=== PATIENT | female | born 1950 | race African-American/Black ===

== ENCOUNTER 2016-08-06 03:09 | Observation (INO) | payer MEDICARE ==
[~2016-08-06] VITALS: Ht 170.2 cm; Wt 90.0 kg
[~2016-08-06 03:09] MED LIST: ANAS1 PO; ASPI81 PO; DICL25 PO; OMEG600C2 PO; PROT40TA PO; TAB-TAB PO
[2016-08-06 03:10] VITALS: BP 166/80; PULSE 76; RESP 18; TEMP 97.5; O2SAT 97
[2016-08-06] MEDS ORDERED: GABA300C5 PO (03:15)
[2016-08-06] MEDS ORDERED: BIOT1000 PO (03:15)
[2016-08-06] MEDS ORDERED: FISH120014 PO (03:15)
[2016-08-06] MEDS ORDERED: ANAS1 PO (03:15)
[2016-08-06] MEDS ORDERED: MULT-12 PO (03:15)
[2016-08-06] MEDS ORDERED: ASPI1TAB69 PO (03:15)
[2016-08-06] MEDS ORDERED: PROT40TA PO (03:15)
[2016-08-06] MEDS ORDERED: DICL1CAP4 PO (03:15)
[2016-08-06] MEDS ORDERED: REST0.05 EACH EYE (03:15)
[2016-08-06] MEDS ORDERED: ASPIRIN 81 MG CHEW TAB PO ONE (04:00)
[2016-08-06] MEDS ORDERED: SODIUM CHLORIDE 0.9% FLUSH 5 ML FLUSH IVF PRN ×2 (04:00→06:45)
--- NOTE | 2016-08-06 04:00 | PD ---
HPI Chief Complaint: Chest Pain Time Seen by Provider: 03:38 Travel History International Travel<30 days: No Contact w/Intl Traveler<30days: No Traveled to known affect area: No History of Present Illness HPI This is a 66 year old female who presents to the emergency department with shortness of breath and chest pain since 8 AM, described as someone sitting on her chest, worse with deep breaths, constant, worsening. Pt. reports she is having some pain in her left arm as well. Pt. reports she has been feeling dizzy, tired, and fatigued more than normal. (-) nausea. Pt. does have a history of breast cancer currently on hormonal therapy. PFSH Past Medical History Arthritis: Yes Autoimmune Disease: No Blood Disorders: No Cancer: Yes (LEFT BREAST '07) Cardiovascular Problems: No Cerebrovascular Accident: Yes (TIA) Diabetes: Yes (DIET CONTOLLED) Patient Takes Glucophage: No Diminished Hearing: No Endocrine: No Gastrointestinal Disorders: Yes (GERD) GERD: Yes Genitourinary: No Hepatitis: No Hiatal Hernia: No Immune Disorder: No Musculoskeletal: Yes (RIGHT SHOULDER PAIN, ARTHRITIS) Neurologic: Yes (TIA, LEFT FACIAL NEUROPATHY) Psychiatric: No Reproductive: No Respiratory: No Thyroid Disease: No Menopausal: Yes Past Surgical History Abdominal Surgery: Yes (CHOLECYSTECTOMY) AICD: No Cholecystectomy: Yes Gynecologic Surgery: Yes (RICH) Hysterectomy: Yes Joint Replacement: Yes (RIGHT KNEE) Pacemaker: No Thoracic Surgery: Yes (LEFT BREAST LUMPECTOMY, LEFT BREAST BX) Other Surgery: Yes Social History Alcohol Use: No Tobacco Use: No Substance Use: No Allergies-Medications (Allergen,Severity, Reaction): Coded Allergies: Lortab (Verified Allergy, Severe, 11/12/15) Reported Meds & Prescriptions Reported Meds & Active Scripts Active Reported Biotin 1,000 Mcg Tab 1,000 Mg PO Fish Oil ([place]-3 Fatty Acids) 1,200 Mg Cap 2 Cap PO DAILY Alive Womens 50+ (Multiple Vitamins W/ Minerals) 1 Tab Tab 2 Tab PO DAILY Restasis Opth Drops (Cyclosporine Opth Drops) 0.05% Emul 1 Drop EACH EYE BID Aspirin 81 Mg Tabdr 81 Mg PO DAILY Gabapentin 300 Mg Cap 300 Mg PO TID Protonix (Pantoprazole Sodium) 40 Mg Tab 40 Mg PO DAILY Arimidex (Anastrozole) 1 Mg Tab 1 Mg PO DAILY Zorvolex (Diclofenac) 35 Mg Cap 75 Mg PO BID PRN Review of Systems Except as stated in HPI: all other systems reviewed are Neg Physical Exam Narrative GENERAL:Well appearing, no acute distress SKIN: Warm and dry. HEAD: Atraumatic. Normocephalic. EYES: Pupils equal and round. No injection or drainage. ENT: Moist mucous membranes NECK: Trachea midline. CARDIOVASCULAR: Regular rate and rhythm. No murmur appreciated. RESPIRATORY: Clear to auscultation. Breath sounds equal bilaterally. GASTROINTESTINAL: Abdomen soft, mildly tender to palpation in the left lower quadrant (chronic) MUSCULOSKELETAL: No obvious deformities. NEUROLOGICAL: Awake and alert. No obvious cranial nerve deficits. Moving all extremities. PSYCHIATRIC: Appropriate mood and affect; insight and judgment normal. Data Data Last Documented VS Vital Signs Date Time Temp Pulse Resp B/P Pulse Ox O2 Delivery O2 Flow Rate FiO2 08/06/16 03:25 98 Nasal Cannula 3 08/06/16 03:10 97.5 76 18 166/80 Orders Electrocardiogram (08/06/16 04:00) Complete Blood Count With Diff (08/06/16 04:00) Comprehensive Metabolic Panel (08/06/16 04:00) D-Dimer (08/06/16 04:00) Prothrombin Time / Inr (Pt) (08/06/16 04:00) Act Partial Throm Time (Ptt) (08/06/16 04:00) Troponin I (08/06/16 04:00) Chest, Single Ap (08/06/16 04:00) Ecg Monitoring (08/06/16 04:00) Bilateral Bp Monitoring (08/06/16 04:00) Iv Access Insert/Monitor (08/06/16 04:00) Oximetry (08/06/16 04:00) Oxygen Administration (08/06/16 04:00) Aspirin Chew (Aspirin Chew) (08/06/16 04:00) Sodium Chloride 0.9% Flush (Ns Flush) (08/06/16 04:00) Ct Pulmonary Angiogram (08/06/16 ) Iohexol 350 Inj (Omnipaque 350 Inj) (08/06/16 05:46) Admit Order (Ed Use Only) (08/06/16 05:50) Labs Laboratory Tests Test 08/06/16 04:00 White Blood Count 7.9 TH/MM3 Red Blood Count 4.66 MIL/MM3 Hemoglobin 12.6 GM/DL Hematocrit 36.9 % Mean Corpuscular Volume 79.2 FL Mean Corpuscular Hemoglobin 27.1 PG Mean Corpuscular Hemoglobin 34.2 % Concent Red Cell Distribution Width 15.3 % Platelet Count 309 TH/MM3 Mean Platelet Volume 9.5 FL Neutrophils (%) (Auto) 65.6 % Lymphocytes (%) (Auto) 21.7 % Monocytes (%) (Auto) 7.0 % Eosinophils (%) (Auto) 3.1 % Basophils (%) (Auto) 2.6 % Neutrophils # (Auto) 5.2 TH/MM3 Lymphocytes # (Auto) 1.7 TH/MM3 Monocytes # (Auto) 0.6 TH/MM3 Eosinophils # (Auto) 0.2 TH/MM3 Basophils # (Auto) 0.2 TH/MM3 CBC Comment DIFF FINAL Differential Comment Prothrombin Time 11.3 SEC Prothromb Time International 1.0 RATIO Ratio Activated Partial 27.8 SEC Thromboplast Time D-Dimer Quantitative (PE/DVT) 2.00 MG/L FEU Sodium Level 141 MEQ/L Potassium Level 4.1 MEQ/L Chloride Level 108 MEQ/L Carbon Dioxide Level 22.7 MEQ/L Anion Gap 10 MEQ/L Blood Urea Nitrogen 15 MG/DL Creatinine 1.04 MG/DL Estimat Glomerular Filtration 64 ML/MIN Rate Random Glucose 121 MG/DL Calcium Level 8.8 MG/DL Total Bilirubin 0.4 MG/DL Aspartate Amino Transf 24 U/L (AST/SGOT) Alanine Aminotransferase 17 U/L (ALT/SGPT) Alkaline Phosphatase 102 U/L Troponin I LESS THAN 0.02 NG/ML Total Protein 8.0 GM/DL Albumin 3.4 GM/DL [facility] Medical Decision Making Medical Screen Exam Complete: Yes Emergency Medical Condition: Yes Interpretation(s) Afebrile, no tachycardia, hypertensive No leukocytosis Electrolytes are reassuring Troponin is normal D-dimer is 2 Chest x-ray: No acute process CT: No PE EKG: No ST changes Differential Diagnosis Acute coronary syndrome, pulmonary embolism, pneumothorax, pneumonia, bronchitis Narrative Course This is a 66-year-old female who presents to the emergency department with chest pain radiating into her left arm and present since yesterday morning, worsening, associated with some shortness of breath. Patient does have a history of diabetes. EKG was nonischemic. She was placed on a monitor and an IV was established. Initial troponin is negative. D-dimer was slightly elevated so CT pulmonary angiogram was performed which was negative. Patient will be admitted to the chest pain center for serial cardiac enzymes and risk stratification. Diagnosis Primary Impression: Chest pain Qualified Code: R07.9 - Chest pain, unspecified type Admitting Information Admitting Physician Requests: Lynn Galan MD Aug 06, 2016 04:00
[2016-08-06 04:12] LABS: AUTOMATED NEUTROPHIL # 5.2 TH/MM3 (1.8-7.7); BASOPHIL # 0.2 TH/MM3 (0-0.2); BASOPHIL % 2.6 % (0.0-2.0); EOSINOPHIL # 0.2 TH/MM3 (0-0.4); EOSINOPHIL % 3.1 % (0.0-4.0); HEMATOCRIT 36.9 % (35.0-46.0); HEMO FLAGS DIFF FINAL; LYMPH % 21.7 % (9.0-44.0); LYMPHOCYTE # 1.7 TH/MM3 (1.0-4.8); MEAN CELL VOLUME 79.2 FL (80.0-100.0); MEAN CORPUSCULAR HEMOGLOBIN 27.1 PG (27.0-34.0); MEAN CORPUSCULAR HGB CONC 34.2 % (32.0-36.0); NEUT % 65.6 % (16.0-70.0); PLATELET COUNT 309 TH/MM3 (150-450); RED BLOOD COUNT 4.66 MIL/MM3 (4.00-5.30); RED CELL DISTRIBUTION WIDTH 15.3 % (11.6-17.2); WHITE BLOOD COUNT 7.9 TH/MM3 (4.0-11.0)
[2016-08-06 04:25] LABS: APTT (PATIENT) 27.8 SEC (24.3-30.1); PROTHROMBIN TIME - PATIENT 11.3 SEC (9.8-11.6)
--- NOTE | 2016-08-06 04:30 | RADRPT ---
EXAM DATE/TIME: 08/06/2016 02:09 [facility] COMPARISON: No previous studies available for comparison. INDICATIONS : Chest pain x 2 days. MEDICAL HISTORY : Diabetes mellitus type II. Gastroesophageal reflux disease. Carcinoma, breast. TIA SURGICAL HISTORY : Cholecystectomy. Hysterectomy. Total knee replacement, right. Left breast lumpectomy ENCOUNTER: Initial ACUITY: 2 days PAIN SCORE: 8/10 LOCATION: Bilateral chest FINDINGS: A single view of the chest demonstrates the lungs to be symmetrically aerated without evidence of mas s, infiltrate or effusion. The cardiomediastinal contours are unremarkable. Osseous structures are intact. CONCLUSION: No evidence of acute cardiopulmonary disease. Boris Duran MD on August 06, 2016 at 4:28 Board Certified Radiologist. This report was verified electronically.
[2016-08-06 04:50] LABS: ALKALINE PHOSPHATASE 102 U/L (45-117); TOTAL BILIRUBIN ADULT 0.4 MG/DL (0.2-1.0)
[2016-08-06 05:06] LABS: ALT (GPT) 17 U/L (10-53); ANION GAP 10 MEQ/L (5-15); AST (GOT) 24 U/L (15-37); BICARBONATE 22.7 MEQ/L (21.0-32.0); BLOOD UREA NITROGEN 15 MG/DL (7-18); CHLORIDE 108 MEQ/L (98-107); GLOMERULAR FILTRATION RATE 64 ML/MIN (>89); SODIUM (NA) 141 MEQ/L (136-145)
[2016-08-06 05:12] LABS: POTASSIUM 4.1 MEQ/L (3.5-5.1)
[2016-08-06] MEDS ORDERED: IOHEXOL 350 MG/ML 10 ML VIAL (for RAD DIAG) IV ONE (05:46)
--- NOTE | 2016-08-06 06:01 | RADRPT ---
EXAM DATE/TIME: 08/06/2016 05:29 [facility] COMPARISON: No previous studies available for comparison. INDICATIONS : Chest pain for two days. IV CONTRAST: 60 cc Omnipaque 350 (iohexol) IV RADIATION DOSE: 12.79 CTDIvol (mGy) MEDICAL HISTORY : Diabetes mellitus type 2. SURGICAL HISTORY : Lumpectomy ENCOUNTER: Initial ACUITY: 2 days PAIN SCALE: 5/10 LOCATION: Bilateral chest TECHNIQUE: Volumetric scanning of the chest was performed using a pulmonary embolism protocol MIP images were re constructed. Using automated exposure control and adjustment of the mA and/or kV according to patien t size, radiation dose was kept as low as reasonably achievable to obtain optimal diagnostic quality images. FINDINGS: PULMONARY ARTERIES: No filling defects are seen in the pulmonary arteries through the segmental level. LUNGS: There is no consolidation or pneumothorax . No concerning pulmonary nodule is visualized. PLEURAE: There is no pleural thickening or pleural effusion. MEDIASTINUM: There is good visualization of the great vessels of the middle mediastinum. No evidence of mediastin al or hilar adenopathy/mass. MUSCULOSKELETAL: Within normal limits for patient age. MISCELLANEOUS: The visualized upper abdominal organs demonstrate no acute abnormality. Patient has had left mastecto my. CONCLUSION: No pulmonary embolus or other acute abnormality demonstrated. Boris Duran MD on August 06, 2016 at 5:59 Board Certified Radiologist. This report was verified electronically.
[2016-08-06 06:10] VITALS: O2SAT 96
[2016-08-06 06:44] VITALS: O2SAT 95
[2016-08-06 08:32] VITALS: BP 106/63; PULSE 66; RESP 20; TEMP 97.6; O2SAT 94
[2016-08-06] MEDS ORDERED: SODIUM CHLORIDE 0.9% FLUSH 5 ML FLUSH IVF SCH (09:00)
--- NOTE | 2016-08-06 11:19 | HHI.HP ---
[facility] Primary Care Physician Sonu Garcia M.D. Chief Complaint Chest pain History of Present Illness 66-year-old female presents to the emergency room for further evaluation chest discomfort. Approximately 8 AM yesterday morning while awakening she developed brisk, left cheek numbness and her whole upper chest felt heavy. There was no radiation of this pain, duration waxed and waned throughout the day yesterday. Total of 6 chest discomfort episodes, lasting 5 minutes each. Unsure if pain came on quickly versus gradually. She was diaphoretic although is unsure if correlated with chest pain as she also suffers from "hot flashes." No known precipitating factors or relieving factors. States movement and position change seen to make pain worse. Deep breathing did not make chest pain worse. Also had 2 episodes of blurred vision that lasted a few moments. Was encouraged to come to the emergency room by her 's request early this a.m. Review of Systems General: Intermittent fatigue "off/on since retiring in March," no weakness weakness, fever, chills, recent travel, recent illness, denies change in appetite HEENT: 2 brief episodes of blurred vision yesterday, has never had episodes in the past. No MODI, no nasal congestion or drainage, no dysphasia, no blurred vision today. CV: No current CP or pressure. He is worked up for years ago with a metals analyst for an irregular heartbeat. Denies palpitations, intermittent leg pain, or dizziness. RESP: No SOB, cough, wheeze, hemoptysis, or known asthma. No recent upper respiratory infection, has not been around anyone sick. GI: No nausea or vomiting, bowel changes, diarrhea, constipation, pain, distention, melena, blood in the stool. No change in appetite, no unintentional weight loss, reports gaining weight since retiring in the fall. Relates to gaining weight decrease in her activity. : No dysuria, urgency, frequency, hematuria EXT: No lower leg edema, no parathesias. Right foot swelling for 2 weeks, no trauma or known injury. MS: No discomfort or change in ROM. Yesterday chest discomfort was occasionally made worse with position and movement, although patient states she did not move a lot yesterday. Laid in bed most of day. NEURO: Brief left cheek numbness upon awakening yesterday morning. No change in vision, no weakness, or change in speech. No change in memory, dizziness, difficulty with balance, LOC, motor/sensory deficits PSYCH: No anxiety, depression SKIN: No rashes, no concerning lesions Past Family Social History Allergies: Coded Allergies: Lortab (Verified Allergy, Severe, 11/12/15) Past Medical History GERD Arthritis Neuropathy, bilateral arms Breast cancer, in remission Past Surgical History Hysterectomy Cholecystectomy Right knee replacement Carpal tunnel Left mastectomy and lumpectomy 2013 Reported Medications Reported Biotin 1,000 Mcg Tab 1,000 Mg PO Fish Oil ([place]-3 Fatty Acids) 1,200 Mg Cap 2 Cap PO DAILY Alive Womens 50+ (Multiple Vitamins W/ Minerals) 1 Tab Tab 2 Tab PO DAILY Restasis Opth Drops (Cyclosporine Opth Drops) 0.05% Emul 1 Drop EACH EYE BID Aspirin 81 Mg Tabdr 81 Mg PO DAILY Gabapentin 300 Mg Cap 300 Mg PO TID Protonix (Pantoprazole Sodium) 40 Mg Tab 40 Mg PO DAILY Arimidex (Anastrozole) 1 Mg Tab 1 Mg PO DAILY Zorvolex (Diclofenac) 35 Mg Cap 75 Mg PO BID PRNuses approximately 4 times/WK Active Ordered Medications Current Medications Family History Noncontributory for any early onset cardiovascular disease. Father hypertension , mother diabetes, hypertension, CVA. There are 10 siblings in total most have hypertension and diabetes. 3 sisters and herself have all had breast cancer. Social History She is a lifelong nonsmoker, denies any alcohol or illegal drug use. No known hypertension or hyperlipidemia. 3 weeks ago she was diagnosed with diabetes, hemoglobin A1c 0.4%. She has been encouraged to change her diet and increase her activity. 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 Physical Exam Vital Signs Vital Signs Date Time Temp Pulse Resp B/P Pulse Ox O2 Delivery O2 Flow Rate FiO2 08/06/16 08:32 97.6 66 20 106/63 94 Nasal Cannula 2 08/06/16 06:44 95 Nasal Cannula 1.00 08/06/16 06:10 96 Room Air 08/06/16 06:10 97 Nasal Cannula 3 08/06/16 03:25 98 Nasal Cannula 3 08/06/16 03:13 97 Nasal Cannula 3 08/06/16 03:10 97.5 76 18 166/80 97 Physical Exam GENERAL: Alert WN, WD, NAD, moderately obese pleasant, female HEAD: NC, AT EYES: Sclera clear, conjunctiva without injection, pupils equal and round ENT: Mucous membranes pink and moist NECK: Supple, no masses, trachea midline CV: RRR, without murmur, rub, gallop, no JVD, S1-S2 no S3-S4. No carotid bruits RESP: Clear lungs throughout bilateral, no crackles, wheeze, rhonchi, symmetrical chest rise, nonlabored, able to speak in full sentences ABD: Soft, obese, NT, ND, no masses, positive bowel tones BACK: No CVAT, no scoliosis EXT: Pulses +24, no dependent edema MS: Normal tone 4 extremities, nontender, no obvious deformities, full range of motion NEURO: CN II through CN XII grossly intact, motor strength 5/5 PSYCH: A+O 3, pleasant affect, appropriate speech, appropriate mood and affect , insight and judgment SKIN: Normal turgor, normal texture, no lesions, no rashes, warm, and dry Laboratory Laboratory Tests Test 08/06/16 08/06/16 04:00 07:30 White Blood Count 7.9 Red Blood Count 4.66 Hemoglobin 12.6 Hematocrit 36.9 Mean Corpuscular Volume 79.2 Mean Corpuscular Hemoglobin 27.1 Mean Corpuscular Hemoglobin 34.2 Concent Red Cell Distribution Width 15.3 Platelet Count 309 Mean Platelet Volume 9.5 Neutrophils (%) (Auto) 65.6 Lymphocytes (%) (Auto) 21.7 Monocytes (%) (Auto) 7.0 Eosinophils (%) (Auto) 3.1 Basophils (%) (Auto) 2.6 Neutrophils # (Auto) 5.2 Lymphocytes # (Auto) 1.7 Monocytes # (Auto) 0.6 Eosinophils # (Auto) 0.2 Basophils # (Auto) 0.2 CBC Comment DIFF FINAL Differential Comment Prothrombin Time 11.3 Prothromb Time International 1.0 Ratio Activated Partial 27.8 Thromboplast Time D-Dimer Quantitative (PE/DVT) 2.00 Sodium Level 141 Potassium Level 4.1 Chloride Level 108 Carbon Dioxide Level 22.7 Anion Gap 10 Blood Urea Nitrogen 15 Creatinine 1.04 Estimat Glomerular Filtration 64 Rate Random Glucose 121 Calcium Level 8.8 Total Bilirubin 0.4 Aspartate Amino Transf 24 (AST/SGOT) Alanine Aminotransferase 17 (ALT/SGPT) Alkaline Phosphatase 102 Troponin I LESS THAN 0.02 LESS THAN 0.02 Total Protein 8.0 Albumin 3.4 Result Diagram: 08/06/1639908/06/16399 Imaging Last Impressions Chest X-Ray 08/06/16399 Signed Impressions: Service Date/Time: Saturday, August 06, 2016 02:09 - CONCLUSION: No evidence of acute cardiopulmonary disease. Boris Duran MD CT Angiography 08/06/16 0000 Signed Impressions: Service Date/Time: Saturday, August 06, 2016 05:29 - CONCLUSION: No pulmonary embolus or other acute abnormality demonstrated. Boris Duran MD Course EKGs 3 EKGs show normal sinus rhythm and normal axis and no ST or T-segment changes Assessment and Plan Assessment and Plan # 1 Chest painpatient has been admitted to the chest pain center. She will undergo 3 sets of EKGs, cardiac enzymes, and be seen and be evaluated by Dr. Zane Langford. Discussed the likelihood with patient that she will undergo another chemical stress test as it has been approximately 4 years since her last exam. She is agreeable to this plan of care. #2 Hypertension-initially hypertensive in the emergency room. Has been normotensive since admission to ER. Will continue to monitor. #3 Neuropathyreorder gabapentin 300 mg 3 times a day. Follow-up with primary care provider. #4 GERDreorder Protonix 40 mg daily Yumi Ayala Aug 06, 2016 11:19 #3 Neuropathyreorder gabapentin 300 mg 3 times a day. Follow-up with primary care provider. #4 GERDreorder Protonix 40 mg daily Yumi Ayala Aug 06, 2016 11:19
[2016-08-06] MEDS ORDERED: ANASTROZOLE 1 MG TAB PO SCH (11:30)
[2016-08-06] MEDS ORDERED: CYCLOSPORINE OPTH EACH EYE SCH (11:30)
[2016-08-06] MEDS ORDERED: PANTOPRAZOLE SOD 40 MG DELAYED RELEASE TAB PO SCH (11:30)
[2016-08-06] MEDS ORDERED: MULTIVITAMIN HEMATINIC THERAPEUTIC TAB PO SCH (11:30)
[2016-08-06] MEDS ORDERED: REGADENOSON INJ 0.4 MG/5 ML SYR ONE (11:42)
[2016-08-06] MEDS ORDERED: GABAPENTIN 300 MG CAP PO SCH (13:00)
--- NOTE | 2016-08-06 14:17 | RADRPT ---
EXAM DATE/TIME: 08/06/2016 11:13 [facility] COMPARISON: No previous studies available for comparison. INDICATIONS : Mid chest pain with shortness of breath for one day. Angina. DOSE: 26.6 mCi Tc99m Myoview at stress. 8.1 mCi Tc99m Myoview at rest. 0.4 mg Lexiscan STRESS SYMPTOMS: Heartburn. EJECTION FRACTION: 65% MEDICAL HISTORY : Diabetes mellitus type 2. Carcinoma, breast. Gastroesophageal reflux disease. SURGICAL HISTORY : Cholecystectomy. Hysterectomy. ENCOUNTER: Initial ACUITY: 1 day PAIN SCALE: 6/10 LOCATION: Midsternal chest TECHNIQUE: The patient underwent pharmacologic stress with infusion of prescribed dose. Continuous ECG tracing was monitored during stress. Gated SPECT imaging was performed after stress and conventional SPECT i maging was performed at rest. The examination was performed on a SPECT/CT scanner, both attenuation and non-corrected datasets were reviewed. FINDINGS: DISTRIBUTION: The maximum perfused segment at stress is in the anterolateral wall. PERFUSION STUDY: The pattern of perfusion at stress shows fixed diminished perfusion to the apex possibly representing some apical thinning or old apical infarct. GATED STUDY: There is intact wall motion and thickening without hypokinetic or dyskinetic segments. CONCLUSION: 1. Fixed diminished perfusion to the apex suggesting apical thinning or old apical infarct. 2. No scintigraphic findings of ischemia, however. 3. Excellent wall motion throughout with estimated ejection fraction of 65%. RISK CATEGORY: Low (<1% Annual Mortality Rate) Terry Ayala MD on August 06, 2016 at 14:12 Board Certified Radiologist. This report was verified electronically.
[2016-08-06 14:49] VITALS: BP 129/84; PULSE 67; RESP 18; TEMP 98.1; O2SAT 95
--- NOTE | 2016-08-06 15:14 | HHI.DCPOC ---
Discharge Care Plan Diagnosis: (1) Musculoskeletal chest pain Goals to Promote Your Health * To prevent worsening of your condition and complications * To maintain your health at the optimal level Directions to Meet Your Goals Take your medications as prescribed Follow your dietary instruction Follow activity as directed Keep your appointments as scheduled Take your immunizations and boosters as scheduled If your symptoms worsen call your PCP, if no PCP go to Urgent Care Center or Emergency Room Smoking is Dangerous to Your Health. Avoid second hand smoke Call the 24-hour hour crisis hotline for domestic abuse at Yumi Ayala Aug 06, 2016 15:14
--- NOTE | 2016-08-06 16:52 | TR ---
Date Performed: 08/06/2016 Time Performed: 11:51:55 DOCTOR: Zane Langford DRUG LIST: CLINICAL HISTORY: ANGINA REASON FOR TEST: Angina REASON FOR ENDING: OBSERVATION: CONCLUSION: Lexiscan stress test was performed under standard four minute protocol. Radionuclid e was injected one minute prior to ending the test. No electrocardiographic abormalities were present to suggest ischemia. Nuclear imaging and interpretation are pending. COMMENTS:
--- NOTE | 2016-08-06 16:55 | EKG ---
Date Performed: 08/06/2016 Time Performed: 03:24:57 PTAGE: 66 years EKG: Sinus rhythm NORMAL ECG PREVIOUS TRACING : 08/06/2016 03.17 Since previous tracing, no significant change noted DOCTOR: Zane Langford Interpretating Date/Time 08/06/2016 16:53:50
--- NOTE | 2016-08-06 17:03 | EKG ---
Date Performed: 08/06/2016 Time Performed: 09:32:39 PTAGE: 66 years EKG: Sinus rhythm NORMAL ECG NO PREVIOUS TRACING DOCTOR: Zane Langford Interpretating Date/Time 08/06/2016 17:01:49
== END 2016-08-06 18:09 | disposition home or self-care (01) ==
LOC: NEPE 03:09 → NEDA 05:52 → NEDH 12:12 → NEPFCDU 14:50
DX: R07.89 Other chest pain (principal); R06.02 Shortness of breath; R53.83 Other fatigue; R42 Dizziness and giddiness; Z85.3 Personal history of malignant neoplasm of breast; Z86.73 Personal history of transient ischemic attack (TIA), and cerebral infarction without residual deficits; E11.9 Type 2 diabetes mellitus without complications; K21.9 Gastro-esophageal reflux disease without esophagitis; R20.0 Anesthesia of skin; R61 Generalized hyperhidrosis; H53.8 Other visual disturbances; G62.9 Polyneuropathy, unspecified; Z79.899 Other long term (current) drug therapy; I10 Essential (primary) hypertension
CPT/HCPCS: 71010; 71275; 78452; 80053; 84484; 85025; 85379; 85610; 85730; 93005; 93017; 99285; A9502; G0378; J2785; Q9967

== ENCOUNTER 2017-04-22 10:31 | Emergency (ER) | payer MEDICARE ==
[~2017-04-22] VITALS: Ht 170.2 cm; Wt 85.0 kg
[~2017-04-22 10:31] MED LIST changes: +ASPI1TAB69 PO; -ASPI81 PO; +BIOT1000 PO; +DICL1CAP4 PO; -DICL25 PO; +FISH120014 PO; +GABA300C5 PO; +MULT-12 PO; -OMEG600C2 PO; +REST0.05 EACH EYE; -TAB-TAB PO
[2017-04-22 10:33] VITALS: BP 146/74; PULSE 75; RESP 13; TEMP 98.3; O2SAT 98
[2017-04-22] MEDS ORDERED: IBUPROFEN 600 MG TAB PO ONE (11:00)
--- NOTE | 2017-04-22 11:04 | PD ---
HPI Chief Complaint: Pain: Acute or Chronic Time Seen by Provider: 10:57 Travel History International Travel<30 days: No Contact w/Intl Traveler<30days: No Traveled to known affect area: No History of Present Illness HPI 66-year-old female presents to the emergency Department with complaint of right foot pain and left knee pain that started yesterday. Denies fall, strain, trauma. Denies paresthesias, loss of sensation, decreased range of motion, decreased strength bilateral lower extremities. Is ambulatory. Foot pain is to the dorsal, lateral aspect. The pain is to the medial aspect. Rates the pain 8/10. Rates the knee pain 5/10. Describes as throbbing sensation. Has taken gabapentin for symptom management. Pain is worse with palpation, movement , and ambulation. Dr. Garcia is primary care provider. Allergies to acetaminophen and hydrocodone. Has no other medical complaints. No other modifying factors or associated signs and symptoms. PFSH Past Medical History Arthritis: Yes Autoimmune Disease: No Blood Disorders: No Cancer: Yes (LEFT BREAST '07) Cardiovascular Problems: No Cerebrovascular Accident: Yes Diabetes: Yes Diminished Hearing: No Endocrine: No Gastrointestinal Disorders: Yes (GERD) GERD: Yes Genitourinary: No Hepatitis: No Hiatal Hernia: No Immune Disorder: No Musculoskeletal: Yes (RIGHT SHOULDER PAIN, ARTHRITIS) Neurologic: Yes (TIA, LEFT FACIAL NEUROPATHY) Psychiatric: No Reproductive: No Respiratory: No Thyroid Disease: No ?: Not Menopausal: Yes Past Surgical History Abdominal Surgery: Yes (CHOLECYSTECTOMY) AICD: No Cholecystectomy: Yes Gynecologic Surgery: Yes (RICH) Hysterectomy: Yes Joint Replacement: Yes (RIGHT KNEE) Pacemaker: No Thoracic Surgery: Yes (LEFT BREAST LUMPECTOMY, LEFT BREAST BX) Other Surgery: Yes Social History Alcohol Use: No Tobacco Use: No Substance Use: No Allergies-Medications (Allergen,Severity, Reaction): Coded Allergies: acetaminophen (Unverified Allergy, Severe, 04/22/17) hydrocodone (Unverified Allergy, Severe, 04/22/17) Reported Meds & Prescriptions Reported Meds & Active Scripts Active Reported Biotin 1,000 Mcg Tab 1,000 Mg PO Fish Oil ([place]-3 Fatty Acids) 1,200 Mg Cap 2 Cap PO DAILY Alive Womens 50+ (Multiple Vitamins W/ Minerals) 1 Tab Tab 2 Tab PO DAILY Restasis Opth Drops (Cyclosporine Opth Drops) 0.05% Emul 1 Drop EACH EYE BID Aspirin 81 Mg Tabdr 81 Mg PO DAILY Gabapentin 300 Mg Cap 300 Mg PO TID Protonix (Pantoprazole Sodium) 40 Mg Tab 40 Mg PO DAILY Arimidex (Anastrozole) 1 Mg Tab 1 Mg PO DAILY Zorvolex (Diclofenac) 35 Mg Cap 75 Mg PO BID PRN Review of Systems Except as stated in HPI: all other systems reviewed are Neg Physical Exam Narrative GENERAL: Well-nourished, well-developed elderly, black female patient, in no acute distress; afebrile, nontoxic-appearing SKIN: Warm and dry. HEAD: Atraumatic. Normocephalic. EYES: Pupils equal and round. No scleral icterus. No injection or drainage. ENT: Mucosa pink and moist. Airway patent. NECK: Trachea midline. CARDIOVASCULAR: Regular rate. RESPIRATORY: No accessory muscle use. GASTROINTESTINAL: Round. MUSCULOSKELETAL: Right foot without erythema, edema, ecchymosis; no obvious deformity; tenderness on palpation to the lateral aspect of the midfoot zone; 2 + pedal pulse; sensory intact; full range of motion. Left knee is nonedematous , nonerythematous and without ecchymosis; full range of motion and flexion to 90 ; joint stable was negative drawer test; no obvious deformity; tenderness on palpation to the medial aspect; 2+ pedal pulse; sensory intact. No clubbing. No cyanosis. No edema. NEUROLOGICAL: Awake and alert. Oriented 3. No obvious cranial nerve deficits. Motor grossly within normal limits. Normal speech. PSYCHIATRIC: Appropriate mood and affect; insight and judgment normal. Data Data Last Documented VS Vital Signs Date Time Temp Pulse Resp B/P (MAP) Pulse Ox O2 Delivery O2 Flow Rate FiO2 04/22/17 10:33 98.3 75 13 146/74 (98) 98 Orders Orders Foot, Complete ([id number]) (04/22/17 10:57) Ibuprofen (Motrin) (04/22/17 11:00) Ed Discharge Order (04/22/17 12:00) MDM Medical Decision Making Medical Screen Exam Complete: Yes Emergency Medical Condition: Yes Medical Record Reviewed: Yes Differential Diagnosis Arthritis, bursitis, stress fracture of foot, heel spur, plantar fasciitis, tendinitis Narrative Course 66-year-old female with right foot pain and left knee pain. Denies injury. Ibuprofen administered in the ER. I do not suspect fracture or dislocation of the left knee and felt that imaging is not necessary at this time. I will x- ray the foot to rule out acute process. Right foot x-ray ordered. 1201: Right foot x-ray with no acute findings. Patient says she has a cane for support at home. I offered her prescription for walker and she declined. Instructed patient to follow up with podiatry and orthopedics. Instructed patient to follow up with primary care provider. Patient verbalizes understanding and agreement with treatment plan. Patient is medically cleared and stable for discharge. Discussed reasons to return to the emergency department. Patient agrees with treatment plan. The patients vital signs are stable and the patient is stable for outpatient follow-up and treatment. Patient discharged home, stable and in no acute distress. Diagnosis Primary Impression: Right foot pain Additional Impression: Left knee pain Qualified Codes: M25.562 - Pain in left knee Referrals: Orthopedist Scale Expert Primary Care Physician Patient Instructions: General Instructions, Knee Pain (ED) Additional Instructions: Tylenol or ibuprofen as directed and as needed for pain and inflammation Rest, ice, compress, and elevate extremity to decrease pain and inflammation Knee brace for support Walker or cane for support Avoid aggravating activity; increase activity as tolerated Follow-up with primary care provider Return to the emergency department immediately with worsening of symptoms Med/Other Pt SpecificInfo: No Change to Meds, No Meds Exist/No RX given Disposition: 01 DISCHARGE HOME Condition: Stable Alanis Franco Apr 22, 2017 11:04
--- NOTE | 2017-04-22 11:46 | RADRPT ---
EXAM DATE/TIME: 04/22/2017 11:12 [facility] COMPARISON: No previous studies available for comparison. INDICATIONS : Right foot pain on the top. MEDICAL HISTORY : breast ca 2 x SURGICAL HISTORY : breast ca surgery ENCOUNTER: Initial ACUITY: 2 days PAIN SCORE: 10/10 LOCATION: Right foot FINDINGS: Three view examination of the right foot demonstrates no soft tissue swelling, dislocation, or fractu re. The tarsal bones appear intact. The interphalangeal and metatarsophalangeal joints are intact. The calcaneus is intact. Bony mineralization is normal. CONCLUSION: No evidence of recent bony injury. Go Perez MD on April 22, 2017 at 11:44 Board Certified Radiologist. This report was verified electronically.
== END 2017-04-22 12:17 | disposition home or self-care (01) ==
LOC: NEPK 10:31
DX: M79.671 Pain in right foot (principal); M25.562 Pain in left knee; M25.569 Pain in unspecified knee; M19.90 Unspecified osteoarthritis, unspecified site; E11.9 Type 2 diabetes mellitus without complications; K21.9 Gastro-esophageal reflux disease without esophagitis; G51.9 Disorder of facial nerve, unspecified; Z85.3 Personal history of malignant neoplasm of breast; Z86.73 Personal history of transient ischemic attack (TIA), and cerebral infarction without residual deficits
CPT/HCPCS: 73630; 99283

== ENCOUNTER 2018-02-21 05:31 | Inpatient (IN) ==
[2018-02-21] MEDS ORDERED: Tranexamic Acid Inj 870 MG in Sodium Chlor 0.9% Inj 100 ML IV.SIG SCH (06:00)
[2018-02-21] MEDS ORDERED: Sodium Chlor 0.9% Inj 500 ML IV.SIG SCH (06:00)
[2018-02-21] MEDS ORDERED: Vancomycin Inj 1,000 MG in Sodium Chlor 0.9% Inj 250 ML IV.SIG SCH (06:00)
[2018-02-21] MEDS ORDERED: Chlorhexidine Gluconate 2% 1 Pack (2 Cloths) TOPICAL SCH (06:00)
[2018-02-21] MEDS ORDERED: Sodium Chlor 0.9% Inj 40 ML, Bupivacaine Liposo PF 1.3% Inj 20 ML P-ARTICULR SCH ×2 (06:00)
[2018-02-21] MEDS ORDERED: Chlorhexidine 4% Topical 120 APPLIC/120 ML Bottle TOPICAL SCH (06:00)
[2018-02-21] MEDS ORDERED: Metoprolol Tartrate 25 MG Tablet PO SCH (06:00)
[2018-02-21] MEDS ORDERED: Bupivacaine PF 0.5% Inj 30 ML Vial ONE (06:46)
[2018-02-21] MEDS ORDERED: Bupivacaine/Epinephrine Inj 0.25% 50 ML Vial ONE (07:05)
[2018-02-21] MEDS ORDERED: fentaNYL Citrate Inj 250 MCG/5 ML Ampul ONE (07:42)
[2018-02-21] MEDS ORDERED: Esmolol Bolus Inj 100 MG/10 ML Vial IV.PUSH ONE (08:17)
[2018-02-21] MEDS ORDERED: Phenylephrine/NS 1000 MCG/10ML Syringe IV.PUSH ONE (08:17)
[2018-02-21] MEDS ORDERED: Labetalol HCl Inj 100 MG/20 ML Vial IV.CONT ONE (08:17)
[2018-02-21] MEDS ORDERED: Bisacodyl 10 MG Supp RECTAL PRN (09:37)
[2018-02-21] MEDS ORDERED: Temazepam 15 MG Capsule PO PRN (09:37)
[2018-02-21] MEDS ORDERED: Morphine Inj 4 MG/ML Vial IV.PUSH PRN (09:37)
[2018-02-21] MEDS ORDERED: Post-op Orders (for Pharmacy) OTHER STA (09:37)
--- NOTE | 2018-02-21 09:45 | P.OP ---
- Preoperative Diagnosis (1) Osteoarthritis of left knee - Postoperative Diagnosis (1) Osteoarthritis of left knee Date of procedure: 02/21/18 Procedure: Left total knee replacement arthroplasty Anesthesia: GETA Surgeon: Bill Ashby MD [place] Lifeguard: BRANDY Johnson Operation and Findings: EBL: 100 cc INDICATION: This patient presents with long-standing arthritis of the knee. Attachment record documents conservative measures. The patient now presents for surgical treatment. NOTE: Deanne Johnson PA-C was present for the entire surgical procedure as my seo assistant. In my medical opinion her skill and care was necessary for proper management of this patient. TOURNIQUET TIME: 60 minutes COMPANY: [employer] FEMUR: Size 6, posterior stabilized, left TIBIA: Size 4, fixed-bearing PATELLA: 29 mm POLYETHYLENE INSERT: 10 mm PROCEDURE: This patient was brought the operating room and anesthetized in the supine position. The patient was positioned supine on the table. The tourniquet was placed about the thigh, and the leg was scrubbed with alcohol followed by Hibiclens followed by ChloraPrep and draped sterilely. A timeout was done, and antibiotics were given. After exsanguination the tourniquet was inflated to 250 mmHg. An anterior incision was made and a median parapatellar arthrotomy was performed. The patella was released laterally and subluxed allowing freehand cut of the patella which was then sized. A metal cap was placed over the exposed patellar surface for protection. A airline pilot/first officer hole was placed in the distal femur allowing a 5 valgus cut removing 10 mm from the distal femur. Anterior posterior and chamfer cuts were made. The posterior stabilize osteotomy was made. The attention was directed to the tibia. Retractors were positioned. The external alignment guide was used allowing the lateral tibia to be used as referencing guide and cut utilizing an oscillating saw taking care to avoid any injury to the surrounding soft tissues. This was sized properly. Trial reduction showed that the insert fit nicely. The patient had range of motion extension 0 flexion 115 . A medial release was not necessary. The bony surfaces prepared. On the back table 2 packets of methylmethacrylate were mixed. The components were cemented. Excess cement was removed. The tourniquet let down and hemostasis was controlled. The final plastic insert was inserted. Range of motion was the same as previously noted. A drain was brought through a separate stab incision. The arthrotomy was repaired with interrupted #1 Vicryl suture, subcutaneous tissue 2-0 Vicryl suture and skin with metallic rey A sterile dressing was applied. Sponge counts, needle counts and instrument counts were all correct. The patient tolerated procedure well and was taken to recovery in satisfactory condition. FINDINGS: There was severe osteoarthritis of the medial compartment. There was some laxity to the medial collateral ligament. Final balancing appeared to be excellent. There was no complication.
--- NOTE | 2018-02-21 09:47 | P.DCO ---
- Physical Therapy Physical Therapy: Gait training, Other (Daily for 2 weeks) Knee: Total knee, Protocol: Left Canvas Knee Splint: Other (At nighttime for 4 weeks) Left Lower Extremity Weight Bearing: Weight bearing as tolerated - Nursing RN: 3 days/week x 2 weeks Nursing: Other Dressing changes: Do not change dressing (Unless dressing is saturated) - Certification Need for Home Health services: I have seen patient Rachael Meadows on 02/21/18. My clinical findings support the need for the requested home health care services because: Need for Home Health Services: High risk of falls Homebound Certification: I certify that my clinical findings support that this patient is homebound because: Homebound Certification: Unsteady gait/balance
[2018-02-21] MEDS ORDERED: *Promethazine Inj 25 MG/ML Vial PERIprocedural use ONLY ONE (12:00)
--- NOTE | 2018-02-21 12:53 | XR ---
EXAM DATE: 02/21/2018 11:00 AM EDT AGE/SEX: 67 years / Female INDICATIONS: Post op left knee surgery. CLINICAL DATA: This is the patient's initial encounter. Patient reports that signs and symptoms have been present for 1 day and indicates a pain score of 0/10. MEDICAL/SURGICAL HISTORY: None. None. COMPARISON: No prior exams available for comparison. FINDINGS: Total knee arthroplasty is noted. Tibial and femoral components appear well seated. Subcutaneous air anteriorly and at the knee joint as well as in the joint effusion are noted. Overlying skin rey a re seen. CONCLUSION: Postoperative changes. Electronically signed by: Soy Rojas MD 02/21/2018 12:51 PM EDT
[2018-02-21] MEDS ORDERED: *morphine SULFATE 4 MG/ML PERIprocedure ONLY ONE (14:08)
[2018-02-21] MEDS: Senna/Docusate Sodium 8.6/50 MG Tablet PO SCH (20:33)
[2018-02-21] MEDS: Gabapentin 300 MG Capsule PO SCH (20:33)
[2018-02-21] MEDS: Multivitamin/Minerals Therapeutic Tablet PO SCH (20:33)
[2018-02-22] MEDS: Lisinopril 10 MG Tablet PO SCH (10:02)
[2018-02-22] MEDS: Anastrozole 1 MG Tablet PO SCH (10:02)
[2018-02-22] MEDS: Senna/Docusate Sodium 8.6/50 MG Tablet PO SCH ×2 (10:03→20:18)
[2018-02-22] MEDS: Gabapentin 300 MG Capsule PO SCH ×3 (10:03→18:37)
[2018-02-22] MEDS: Multivitamin/Minerals Therapeutic Tablet PO SCH ×2 (10:03→20:18)
--- NOTE | 2018-02-22 12:46 | P.PNOP ---
Subjective Interval history: Doing well overall. Pain is as expected. Poor nights sleep last night. No new leg pain. No CP or SOB. Considering discharge to rehab. Physical Exam Vital signs: Vital Signs 02/21/18 13:00 02/21/18 14:13 02/21/18 16:53 Temperature 98.0 F 98.3 F Pulse Rate 78 80 81 Respiratory Rate 20 18 19 Blood Pressure 131/67 120/60 145/63 H Pulse Oximetry 100 98 98 02/21/18 20:00 02/21/18 20:20 02/21/18 20:35 Temperature 99.9 F H Pulse Rate 92 H Respiratory Rate 18 18 Blood Pressure 141/69 H Pulse Oximetry 99 98 02/21/18 21:03 02/22/18 00:00 02/22/18 00:42 Temperature 98 F Pulse Rate 100 H Respiratory Rate 18 18 17 Blood Pressure 107/62 Pulse Oximetry 98 02/22/18 03:47 02/22/18 04:00 02/22/18 08:00 Temperature 97.4 F L 98.4 F Pulse Rate 88 94 H Respiratory Rate 18 18 17 Blood Pressure 154/70 H 129/67 Pulse Oximetry 100 92 L 02/22/18 09:11 02/22/18 12:00 Temperature 97.6 F Pulse Rate 93 H Respiratory Rate 18 Blood Pressure 108/54 L Pulse Oximetry 94 L 96 Intake & Output 02/21/18 02/22/18 02/22/18 18:59 06:59 18:59 Intake Total 1858.7 / 1858.7 1650 / 1650 Output Total 100 / 100 Balance 1758.7 / 1758.7 1650 / 1650 Weight 86.9 kg Intake: IV 1458.7 / 1458.7 1200 / 1200 LR 1000 mL Inj 1,000 ML @ 80 1000 / 1000 mls/hr IV.CONT .[id number] [facility]LA[facility] Rx# :[id number] LR 1000 mL Inj 1,000 ML @ 30 1000 / 1000 mls/hr IV.SIG .Q24H FLAKO Rx#: [id number] Cyklokapron Inj 870 MG In NS 108.7 / 108.7 Inj 100 ML @ 200 mls/hr IV.SIG ONCE [facility] Rx#:[id number] Vancomycin Inj 1,000 MG In NS 250 / 250 Inj 250 ML @ 250 mls/hr IV.SIG TOOL TENDER FLAKO Rx#:[id number] Ancef Inj 1,000 MG In NS Inj 100 / 100 200 / 200 100 ML @ 200 mls/hr IV.SIG Q6H [facility] Rx#:[id number] Oral 200 / 200 450 / 450 Anesthesia Amount 100 / 100 Other 100 / 100 Output: Estimated Blood Loss 100 / 100 Other: # Voids 2 2 Date of Last Bowel Movement 02/20/18 02/21/18 02/21/18 # Bowel Movements 0 Narrative: With 2 family members NAD AAOx3 LLE Knee dressing c/d/i, no new drainage, mild swelling, no erythema +motor at distal, +sens, +nvi Neg Homans - Constitutional no acute distress Results - Labs Laboratory Results - last 24 hr 02/21/18 16:22 POC Glucose 117 H - Imaging Impressions Knee X-Ray 02/21/18 09:38 CONCLUSION: Postoperative changes. - Procedures Left TKA Assessment and Plan - Ortho Post Op Day # 1 - Problem List (1) Osteoarthritis of left knee Code(s): M17.12 - Unilateral primary osteoarthritis, left knee Status: Acute - Assessment and Plan pod#1 s/p L TKA Doing well. Pain moderately controlled. PT - WBAT LLE. Encourage ROM. Walker. CKS when in bed Hold dressing changes unless saturated. ASA 81mg BID Percocet 5mg for pain. D/C planning, thurs vs fri, pt unsure whether she needs to go home or to rehab. DME written.
[2018-02-23] MEDS: Multivitamin/Minerals Therapeutic Tablet PO SCH (09:10)
[2018-02-23] MEDS: Anastrozole 1 MG Tablet PO SCH (09:10)
[2018-02-23] MEDS: Senna/Docusate Sodium 8.6/50 MG Tablet PO SCH (09:10)
[2018-02-23] MEDS: Gabapentin 300 MG Capsule PO SCH ×2 (09:10→16:05)
[2018-02-23] MEDS: Lisinopril 10 MG Tablet PO SCH (09:11)
[2018-02-23 12:15] LABS: Bilirubin,Urine Negative (Negative); Clarity,Urine Clear (Clear); Color,Urine Yellow (Yellw/Straw); Glucose,Urine (UA) Negative (Negative); Leukocyte Esterase,Urine Negative (Negative); Nitrite,Urine Negative (Negative); Specific Gravity,Urine 1.009 (1.002-1.035); Squamous Epithelial Cell,Urine <1 /hpf (0-5)
--- NOTE | 2018-02-23 12:56 | P.PNOP ---
Subjective Interval history: She is doing better today. Left knee pain present but improved. She was able to get some sleep last night. NO other complaints. She and her family have decided she would like to go to a SNF. Physical Exam Vital signs: Vital Signs 02/22/18 15:52 02/22/18 20:00 02/23/18 00:00 Temperature 99.3 F 98.2 F 98.6 F Pulse Rate 97 H 94 H 93 H Respiratory Rate 17 17 17 Blood Pressure 129/59 L 130/60 120/60 Pulse Oximetry 95 96 94 L 02/23/18 04:00 02/23/18 08:00 02/23/18 12:00 Temperature 99.3 F 99.5 F 98.1 F Pulse Rate 95 H 95 H 108 H Respiratory Rate 17 18 17 Blood Pressure 101/57 L 117/64 94/68 L Pulse Oximetry 97 95 95 Intake & Output 02/22/18 02/23/18 02/23/18 18:59 06:59 18:59 Intake Total 960 / 960 Balance 960 / 960 Intake: Oral 960 / 960 Other: # Voids 3 4 Date of Last Bowel Movement 02/21/18 02/21/18 02/21/18 Narrative: With her daughter NAD AAOx3 LLE Knee dressing c/d/i (outer dressing removed), no new drainage, mild swelling, no erythema +motor at distal, +sens, +nvi Neg Homans - Constitutional no acute distress Results - Labs Laboratory Results - last 24 hr 02/21/18 02/23/18 06:14 11:32 Urine Color Yellow Urine Clarity Clear Urine pH 6.0 Ur Specific [place] 1.009 Urine Protein Negative Urine Glucose (UA) Negative Urine Ketones Negative Urine Occult Blood Negative Urine Nitrate Negative Urine Bilirubin Negative Urine Urobilinogen Less than 2 Ur Leukocyte Esterase Negative Urine RBC 1 Urine WBC 3 Ur Squamous Epith Cells <1 Micro UA Comment Culture not ind Ur Microscopic Review Not Reportable Urine Culture Comments Culture not ind Rout Panel Path Interp - Procedures Left TKA Assessment and Plan - Ortho Post Op Day # 2 - Problem List (1) Osteoarthritis of left knee Code(s): M17.12 - Unilateral primary osteoarthritis, left knee Status: Acute - Assessment and Plan pod#2 s/p L TKA Doing well. Pain better controlled. Better rest last night. PT - WBAT LLE. Encourage ROM. Walker. CKS when in bed Hold dressing changes unless saturated. ASA 81mg BID Percocet 5mg for pain. D/C planning, SNF tomorrow. Though she has made good progress with PT her is concerned about caring for her at home. DME written.
== END 2018-02-23 17:06 ==
LOC: HSDI 05:31 → N06 14:47
PROVIDERS: ADMIT Orthopaedic Surgery Orthopaedic Surgery of the Spine; ATTEND Orthopaedic Surgery Orthopaedic Surgery of the Spine